=== PATIENT | female | born 1995 ===

== ENCOUNTER 2022-08-01 11:14 | Emergency (ER) | payer SELFPAY ==
[2022-08-01 11:22] VITALS: BP 121/78; PULSE 90; RESP 15; TEMP 36.3; O2SAT 98
== END 2022-08-01 12:23 | disposition left against medical advice (07) ==
LOC: ANHED 14:50
DX: L98.9 Disorder of the skin and subcutaneous tissue, unspecified (principal)
CPT/HCPCS: 99199